=== PATIENT | male | born 1985 | race African-American/Black ===

== ENCOUNTER 2016-07-08 09:21 | Emergency (ER) | payer MEDICAID ==
[~2016-07-08] VITALS: Ht 160 cm; Wt 63.0 kg
[2016-07-08] MEDS ORDERED: SODIUM CHLORIDE 0.9% 1,000 ML IV ONE (10:11)
[2016-07-08 10:36] LABS: CLARITY URINE CLEAR (CLEAR); COLOR URINE YELLOW (YELLOW); GLUCOSE URINE NEGATIVE (NEGATIVE); KETONES URINE TRACE (NEGATIVE); LEUKOCYTE ESTERASE URINE NEGATIVE (NEGATIVE); NITRITE URINE NEGATIVE (NEGATIVE); OCCULT BLOOD URINE 1+ (NEGATIVE); PH URINE 5.5 (4.5-8.0); PROTEIN URINE TRACE (NEGATIVE); SPECIFIC GRAVITY URINE 1.039 (1.005-1.030)
[2016-07-08 11:06] LABS: HEMATOCRIT. 45.6 % (42.0-52.0); HEMOGLOBIN. 15.4 g/dL (14.0-18.0); MEAN CORPUSCULAR HEMOGLOBIN 29.8 pg (28.0-32.0); MEAN CORPUSCULAR HGB CONC 33.7 g/dL (31.0-37.0); MEAN CORPUSCULAR VOLUME 88.6 fL (80.0-94.0); MEAN PLATELET VOLUME 7.9 fl (7.4-10.4); PLATELET 223 x1000/uL (130-400); RED BLOOD CELL COUNT 5.15 mill/uL (4.7-6.1); RED CELL DISTRIBUTION WIDTH 13.7 % (11.6-14.6); WHITE BLOOD COUNT 5.6 x1000/uL (4.5-11.0)
[2016-07-08 11:08] LABS: BACTERIA URINE NONE SEEN; RBC URINE 0-2 /hpf (0-2); SQUAMOUS EPITHELIAL CELL URINE RARE /lpf (RARE/1+); WBC URINE 0-2 /hpf (0-2)
[2016-07-08 11:13] LABS: CHLORIDE 104 mEq/L (98-107); INDEX HEMOLYSI 1 (1-3); INDEX ICTERIC 1 (1-4); INDEX LIPEMIC 1 (1-3)
[2016-07-08 11:15] LABS: DIFFERENTIAL COMMENT 1
[2016-07-08 11:18] LABS: ANION GAP 11; CALCIUM 8.1 mg/dL (8.5-10.1); CARBON DIOXIDE 29 mEq/L (21-32); UREA NITROGEN BLOOD 16 mg/dL (7-21); eGFR > 60 mL/min (>60)
[2016-07-08 12:15] VITALS: BP 115/65
[2016-07-08 12:49] LABS: PLATELET ESTIMATE NORMAL
== END 2016-07-08 12:28 | disposition home or self-care (01) ==
LOC: ER 10:27
DX: R19.7 Diarrhea, unspecified (principal); J45.909 Unspecified asthma, uncomplicated; Z87.11 Personal history of peptic ulcer disease; F17.210 Nicotine dependence, cigarettes, uncomplicated; Z88.6 Allergy status to analgesic agent
CPT/HCPCS: 36415; 80048; 81001; 85025; 99284; J7030; Z7610

== ENCOUNTER 2016-08-21 10:06 | Emergency (ER) | payer MEDICAID ==
[~2016-08-21] VITALS: Ht 162.6 cm; Wt 65.0 kg
[2016-08-21 10:40] VITALS: BP 142/72
== END 2016-08-21 13:46 | disposition home or self-care (01) ==
LOC: ER 10:07
DX: S63.695A Other sprain of left ring finger, initial encounter (principal); X58.XXXA Exposure to other specified factors, initial encounter; Y93.72 Activity, wrestling; Y92.89 Other specified places as the place of occurrence of the external cause; Y99.8 Other external cause status; I10 Essential (primary) hypertension; J45.909 Unspecified asthma, uncomplicated; M79.642 Pain in left hand; R20.0 Anesthesia of skin
CPT/HCPCS: 29130; 73130; 99284

== ENCOUNTER 2016-08-23 07:57 | Emergency (ER) | payer MEDICAID ==
[2016-08-23 08:08] VITALS: BP 135/84
== END 2016-08-23 09:56 | disposition home or self-care (01) ==
LOC: ER 07:57
DX: S63.615A Unspecified sprain of left ring finger, initial encounter (principal); J45.909 Unspecified asthma, uncomplicated; F17.210 Nicotine dependence, cigarettes, uncomplicated; Z88.8 Allergy status to other drugs, medicaments and biological substances; X58.XXXA Exposure to other specified factors, initial encounter; Y93.89 Activity, other specified; Y92.9 Unspecified place or not applicable; Y99.8 Other external cause status
CPT/HCPCS: 29130; 73130; 99284

== ENCOUNTER 2016-11-05 08:22 | Emergency (ER) | payer MEDICAID ==
[~2016-11-05] VITALS: Ht 160 cm; Wt 59.0 kg
[2016-11-05] MEDS ORDERED: NAPROXEN 375MG TABLET PO ONE (08:45)
[2016-11-05 09:03] VITALS: BP 130/95
== END 2016-11-05 10:21 | disposition home or self-care (01) ==
LOC: ER 08:35
DX: R07.89 Other chest pain (principal); J45.909 Unspecified asthma, uncomplicated; F17.200 Nicotine dependence, unspecified, uncomplicated
CPT/HCPCS: 71010; 93005; 99284; Z7610

== ENCOUNTER 2017-04-20 08:28 | Emergency (ER) | payer MEDICAID ==
[~2017-04-20] VITALS: Ht 160 cm; Wt 70.0 kg
[2017-04-20] MEDS ORDERED: IBUPROFEN 600MG TABLET PO STA (10:29)
[2017-04-20 10:50] VITALS: BP 121/74
== END 2017-04-20 13:08 | disposition home or self-care (01) ==
LOC: ER 08:49
DX: S46.811A Strain of other muscles, fascia and tendons at shoulder and upper arm level, right arm, initial encounter (principal); J45.909 Unspecified asthma, uncomplicated; Z88.6 Allergy status to analgesic agent; Y93.83 Activity, rough housing and horseplay; Y92.018 Other place in single-family (private) house as the place of occurrence of the external cause
CPT/HCPCS: 73010; 99284

== ENCOUNTER 2017-05-06 09:07 | Emergency (ER) | payer MEDICAID ==
[~2017-05-06] VITALS: Ht 170.2 cm; Wt 70.0 kg
[2017-05-06] MEDS ORDERED: KETOROLAC 60MG/2ML VIAL IM ONE (11:45)
[2017-05-06 12:54] VITALS: BP 128/75
== END 2017-05-06 12:56 | disposition home or self-care (01) ==
LOC: ER 09:54
DX: S40.011A Contusion of right shoulder, initial encounter (principal); M54.2 Cervicalgia; M79.602 Pain in left arm; M79.604 Pain in right leg; M79.605 Pain in left leg; M79.601 Pain in right arm; M79.1 Myalgia; J45.909 Unspecified asthma, uncomplicated; F17.200 Nicotine dependence, unspecified, uncomplicated; Z88.5 Allergy status to narcotic agent; Z88.6 Allergy status to analgesic agent; V43.62XA Car passenger injured in collision with other type car in traffic accident, initial encounter; Y93.89 Activity, other specified; Y92.89 Other specified places as the place of occurrence of the external cause; Y99.8 Other external cause status
CPT/HCPCS: 71045; 73000; 96372; 99284; J1885